=== PATIENT | female | born 1970 | race Caucasian/White ===

== ENCOUNTER 2018-05-27 14:51 | Emergency (ER) | payer OTHER ==
[~2018-05-27] VITALS: Ht 165.1 cm; Wt 104.3 kg
[2018-05-27 14:55] VITALS: Ht 165.1 cm; Wt 104.3 kg
[2018-05-27 15:40] LABS: BASOPHIL % 0.8 % (0-2); PLATELET COUNT 276 x10^3mcL (130-400)
[2018-05-27 15:41] LABS: RED CELL DISTRIBUTION WIDTH 14.8 % (11.5-14.5)
[2018-05-27 15:47] LABS: CALCIUM 9.1 mg/dL (8.5-10.1); CARBON DIOXIDE 29.8 mmol/L (21-32); CHLORIDE SERUM 103 mmol/L (98-107); CREATININE SERUM 0.9 mg/dL (0.6-1.0); GFR1 > 60 mL/min; GLUCOSE SERUM 96 mg/dL (74-106); POTASSIUM SERUM 3.9 mmol/L (3.5-5.1); SODIUM SERUM 136 mmol/L (136-145)
[2018-05-27 15:53] LABS: ALBUMIN 4.4 g/dL (3.4-5.0); ALKALINE PHOSPHATASE 102 U/L (46-116); ALT/SGPT 45 U/L (14-59); AST/SGOT 30 U/L (15-37); BILIRUBIN TOTAL 0.41 mg/dL (0.20-1.00); LIPASE 104 IU/L (73-393); TOTAL PROTEIN, SERUM 8.1 g/dL (6.4-8.2)
[2018-05-27 16:53] VITALS: BP 127/84
== END 2018-05-27 17:20 | disposition home or self-care (01) ==
LOC: ED 14:51
PROVIDERS: Emergency Medicine
DX: G89.29 Other chronic pain (principal); R10.33 Periumbilical pain; F17.210 Nicotine dependence, cigarettes, uncomplicated; Z91.010 Allergy to peanuts; Z91.09 Other allergy status, other than to drugs and biological substances
CPT/HCPCS: J1885

== ENCOUNTER 2019-01-18 16:18 | Emergency (ER) | payer OTHER ==
[~2019-01-18] VITALS: Ht 165.1 cm; Wt 93.0 kg
[2019-01-18 16:20] VITALS: Ht 165.1 cm; Wt 93.0 kg
[2019-01-18 17:14] LABS: BASOPHIL % 0.9 % (0-2); PLATELET COUNT 173 x10^3mcL (130-400)
[2019-01-18 17:24] LABS: CALCIUM 8.5 mg/dL (8.5-10.1); CARBON DIOXIDE 27.3 mmol/L (21-32); CHLORIDE SERUM 104 mmol/L (98-107); CREATININE SERUM 0.9 mg/dL (0.6-1.0); GFR1 > 60 mL/min; GLUCOSE SERUM 96 mg/dL (74-106); POTASSIUM SERUM 3.5 mmol/L (3.5-5.1); SODIUM SERUM 141 mmol/L (136-145)
[2019-01-18 17:26] LABS: ALBUMIN 3.9 g/dL (3.4-5.0); ALKALINE PHOSPHATASE 68 U/L (46-116); ALT/SGPT 27 U/L (14-59); AST/SGOT 23 U/L (15-37); BILIRUBIN TOTAL 0.4 mg/dL (0.20-1.00); RED CELL DISTRIBUTION WIDTH 15.2 % (11.5-14.5); TOTAL PROTEIN, SERUM 6.9 g/dL (6.4-8.2)
[2019-01-18 19:32] VITALS: BP 162/91
== END 2019-01-18 19:32 | disposition home or self-care (01) ==
LOC: ED 16:18
PROVIDERS: Emergency Medicine
DX: G89.29 Other chronic pain (principal); R07.89 Other chest pain; M79.7 Fibromyalgia; Z98.890 Other specified postprocedural states; Z91.010 Allergy to peanuts; Z91.018 Allergy to other foods
CPT/HCPCS: J2270; J7030; Q0092; Q9967